=== PATIENT | female | born 1970 | race Caucasian/White ===

== ENCOUNTER 2018-08-27 15:35 | Emergency (ER) | payer OTHER ==
[~2018-08-27] VITALS: Ht 165.1 cm; Wt 99.8 kg
[~2018-08-27 15:35] MED LIST: ABILIFY PO; ABILIFY15 MG PO; ACCUNEB SO1.25 MG/1 INH; ALBUTROL INH; AMBIEN; AMBIEN 5 MG TABL5 M1; AMOXICILLIN 50500 MG PO; ATIVAN0.5 MG; AUGMENTIN 875-1 EACH PO; AZITHROMYCIN 2250 MG PO; BUPROPION PO; BUSPAR15 MG; BUTRANS1 EAC1 TD; CITALOPRAM PO; CLONAZEPAM 1 MG1 M1 PO; COUMADIN 5 MG TA5 M1 PO; COUMADIN7.5 MG PO; CYMBALTA; CYMBALTA60 MG PO; DOXYCYCLINE 10100 MG PO; EYE ITCH RELIEF5 ML OP; FIORICET 50-301 EACH PO; FISH OIL 1,001000 M2 PO; FLAGYL500 MG PO; GEODON80 MG PO; HYDROCODONE-AP1 EAC6 PO; HYDROXYZINE HCL25 M1 PO; IBUPROFEN 800800 MG PO; KLONOPIN0.5 MG PER TUBE; LEVAQUIN 500 M500 MG PO; LEXAPRO20 MG; LISINOPRIL-HCT1 EAC2 PO; LISINOPRIL-HCT1 EACH PO; LOVENOX SC; MACROBID 100 M100 M1 PO; MEDROLDOSEPACK PO; MOBIC7.5 MG PO; NORCO 5-325 TA1 EACH PO; OMEPRAZOLE40 MG PO; PHENAZOPYRIDIN200 M2 PO; PROAIR HFA8.5 GM INH; PROPRANOLOL 1010 M1; TRAMADOL 50 MG50 MG PO; TRAZODONE HCL100 MG; TRAZODONE PO; VEETIDS 500500 MG PO; VICODIN 5-5001 EACH PO; VOLTAREN GEL 1100 G1 TOP; XARELTO10 MG PO; XARELTO20 MG PO; ZESTORETIC 10-1 EACH; ZESTRIL5 MG PO
[2018-08-27] MEDS ORDERED: CLONAZEPAM 0.50.5 M1 PO (15:47)
[2018-08-27] MEDS ORDERED: NORCO 5-325 TA1 EACH PO (15:48)
[2018-08-27] MEDS ORDERED: LISINOPRIL20 MG PO (15:48)
[2018-08-27] MEDS ORDERED: AMOXICILLIN 50500 MG PO (16:25)
[2018-08-27] MEDS ORDERED: ACETAMINOPHEN-1 EAC1 PO (16:25)
[2018-08-27 16:36] VITALS: BP 135/75
== END 2018-08-27 16:37 | disposition home or self-care (01) ==
LOC: M.ERS 15:35
DX: K08.89 Other specified disorders of teeth and supporting structures (principal); J45.909 Unspecified asthma, uncomplicated; F32.9 Major depressive disorder, single episode, unspecified; F41.9 Anxiety disorder, unspecified; K58.9 Irritable bowel syndrome, unspecified; I10 Essential (primary) hypertension; Z98.890 Other specified postprocedural states; Z86.711 Personal history of pulmonary embolism; Z96.642 Presence of left artificial hip joint; Z88.2 Allergy status to sulfonamides

== ENCOUNTER 2019-05-12 20:35 | Inpatient (IN) | payer OTHER ==
[~2019-05-12] VITALS: Ht 165.1 cm; Wt 69.9 kg
--- NOTE | ~2019-05-12 | PROC ---
[address] [address] PROCEDURE REPORT Name: MORGAN AGARWAL Room: [address] IN M.R.#: [id number] Admission: 05/12/19 Attend Phys: Steph zavala [place] Discharge: 05/17/19 Date of : 68 Report #: [id number] THIS REPORT FOR: //name// For GI report, please see the Provation report in Perceptive 7 content. By: 0638Medical Records Staff AGAPITO /JON
--- NOTE | ~2019-05-12 | CON ---
[address] [address] CONSULTATION Name: MORGAN AGARWAL DENI Room: [address] IN M.R.#: [id number] Admission: 05/12/19 Attend Phys: Steph Rashid Discharge: Date of : 68 Report #: [id number] THIS REPORT FOR: //name// CC: Steph Palacios HISTORY OF PRESENT ILLNESS: This is a pleasant 48-year-old female with past medical history significant for obesity, status post gastric sleeve surgery in August of last year, who is presenting for evaluation of abdominal pain. The patient reports she has had abdominal pain since the surgery. It is located in the epigastric region and usually presents only after eating. The pain can present immediately after eating and sometimes can present up to 10-15 minutes after that. It is associated with nausea, no vomiting. The patient presented to the ER because yesterday she had pain after swallowing water. The patient reports she had an EGD done by Dr. Payne few months back and this was unremarkable. The patient also reports worsening reflux symptoms. She reports regurgitation of food when she bends forward after consuming food. PAST MEDICAL HISTORY: Significant for obesity. PAST SURGICAL HISTORY: Significant for total hip replacement, endometrial ablation, tubal ligation, tonsillectomy in the remote past. SOCIAL HISTORY: The patient denies smoking, alcohol or recreational drug use. FAMILY HISTORY: No family history of esophageal or gastric cancer. REVIEW OF SYSTEMS: Negative except for what was mentioned in the HPI. PHYSICAL EXAMINATION: VITAL SIGNS: Temperature 36.6, pulse rate 70, respirations 16, blood pressure 137/71, pulse ox 96% on room air. GENERAL: The patient is alert, awake, oriented x 3. HEENT: Pupils are equal, round, reactive to light and accommodation. Mucous membranes are moist. There is no congestion. LUNGS: Clear to auscultation bilaterally. CARDIOVASCULAR: Rate and rhythm regular, S1, S2 present. ABDOMEN: Soft. There is no distention, guarding or rigidity. EXTREMITIES: Warm and well perfused. SKIN: Warm and dry. LABORATORY DATA: Hemoglobin 11.9, hematocrit 34.8, WBC count 7.1, platelet count 232. Sodium 144, potassium 3.9, chloride 108, bicarbonate 32, BUN 7, creatinine 0.7, total bilirubin 0.3, AST 15, ALT 21, alkaline phosphatase 68. IMAGING: Abdomen and pelvis CT performed yesterday, fluid within the distal small bowel, proximal colon suggesting enteritis and diarrhea, [place] [address] CONSULTATION Name: MORGAN AGARWAL Room: [address] IN [facility].#: [id number] Admission: 05/12/19 Attend Phys: Steph Rashid Discharge: Date of : 68 Report #: [id number] changes from gastric sleeve surgery. ASSESSMENT AND PLAN: Pleasant 48-year-old female with severe epigastric abdominal pain. Post-gastric sleeve surgery. We initially plan on performing EGD today, but the procedure was deferred because of her low potassium. We will perform an EGD on her tomorrow and make further recommendations based on the results of the EGD. I would start her on Bentyl mg t.i.d. p.r.n. for her abdominal pain. Thank you for this consultation. By: 1349 0241Eric Vazquez MD /jeremy
[~2019-05-12 20:35] MED LIST changes: +ACETAMINOPHEN-1 EAC1 PO; +CLONAZEPAM 0.50.5 M1 PO; +LISINOPRIL20 MG PO; +NORCO 5-325 TA1 EAC2 PO; -TRAZODONE HCL100 MG; +TRAZODONE HCL100 MG PO
[2019-05-12 20:45] VITALS: BP 178/106
[2019-05-12] MEDS ORDERED: BUSPAR30 MG PO (20:49)
[2019-05-12] MEDS ORDERED: ZOFRAN 4 MG ORAL4 MG PO (20:50)
[2019-05-12 20:59] LABS: URINE BILIRUBIN NEGATIVE (Negative); URINE BLOOD NEGATIVE (Negative); URINE CLARITY CLEAR; URINE COLOR YELLOW; URINE GLUCOSE-RANDOM NEGATIVE (Negative); URINE KETONES NEGATIVE (Negative); URINE LEUKOCYTES-REFLEX NEGATIVE (Negative); URINE NITRITE-REFLEX NEGATIVE (Negative); URINE PROTEIN NEGATIVE (Negative); URINE UROBILINOGEN 0.2 E.U./dl (0.2-1.0)
[2019-05-12 21:11] LABS: ABSOLUTE BASOPHILS 0.1 thou/uL (0.0-0.2); ABSOLUTE EOSINOPHILS 0.2 thou/uL (0.0-0.7); ABSOLUTE LYMPHOCYTES 2.3 thou/uL (0.8-5.3); ABSOLUTE MONOCYTES 0.4 thou/uL (0.0-1.2); ABSOLUTE NEUTROPHILS 4.1 thou/uL (1.6-8.1); EOSINOPHILS 2.6 %; HEMATOCRIT 34.8 % (37.0-47.0); HEMOGLOBIN 11.9 gm/dL (12.0-15.0); LYMPHOCYTES 32.9 %; MCH 27.8 pg (26.0-34.0); MCHC 34.2 g/dL (28.0-37.0); MCV 81.4 fL (80.0-100.0); MONOCYTES 5.9 %; MPV 7.8 fl. (7.2-11.1); NUCLEATED RBCS 0 /100WBC; PLATELET COUNT* 232 thou/uL (150-400); POLYS 57.6 %; RBC 4.28 mil/uL (4.20-5.00); RDW-CV 13.5 % (10.5-14.5); WBC 7.1 thou/uL (4.0-11.0)
[2019-05-12 21:18] LABS: CALCIUM 8.6 mg/dL (8.5-10.1); POTASSIUM 2.5 mmol/L (3.5-5.1)
[2019-05-12 21:22] LABS: ALBUMIN 3.2 g/dL (3.4-5.0); TOTAL BILIRUBIN 0.3 mg/dL (<0.1-1.0); TOTAL PROTEIN 6.7 g/dL (6.4-8.2)
--- NOTE | 2019-05-12 22:00 | NUR ---
PATIENT LEFT FOR CT SCAN, WILL GIVE MEDICATION WHEN SHE RETURNS
[2019-05-12 23:50] VITALS: BP 126/86
[2019-05-13 03:58] VITALS: BP 112/59
[2019-05-13 07:55] VITALS: BP 94/51
[2019-05-13] MEDS ORDERED: XARELTO20 MG PO (08:54)
[2019-05-13] MEDS ORDERED: BUPROPION XL300 MG PO (08:56)
[2019-05-13 10:55] VITALS: BP 94/51
[2019-05-13 11:30] VITALS: BP 137/71
[2019-05-13 12:37] LABS: CALCIUM 8.2 mg/dL (8.5-10.1); CREATININE 0.9 mg/dL (0.6-1.3); MAGNESIUM 2.2 mg/dL (1.8-2.4)
[2019-05-13 12:38] LABS: POTASSIUM 3.9 mmol/L (3.5-5.1)
[2019-05-13 14:44] LABS: HEMATOCRIT 32.3 % (37.0-47.0); MCHC 34.1 g/dL (28.0-37.0); MCV 82.1 fL (80.0-100.0); MPV 8.1 fl. (7.2-11.1); RBC 3.93 mil/uL (4.20-5.00); RDW-CV 13.4 % (10.5-14.5); WBC 5.4 thou/uL (4.0-11.0)
--- NOTE | 2019-05-13 17:11 | NUR ---
VSS, NSR ON TELE, A&OX4, EPIGASTRIC PAIN, CLEAR LIQUID DIET, NPO AT MIDNIGHT EGD PLANNED FOR 05/14/19 AM. HOURLY ROUNDING PERFORMED, POSSESSIONS AND CALL LIGHT WITHIN REACH.
[2019-05-13 20:00] VITALS: BP 138/71
[2019-05-13 23:57] VITALS: BP 135/72
[2019-05-14 03:58] VITALS: BP 153/79
--- NOTE | 2019-05-14 04:32 | NUR ---
ASSUMED PATIENT CARE AT 1900. ASSESSMENT COMPLETED CHARTED. PATIENT IS NSR ON THE MONITOR. PATIENT REQUESTED THAT SOME OF HER HOME MEDICATIONS BE STARTED. PHYSICIAN NOTIFIED, NEW ORDERS RECEIVED, MEDS GIVEN, SEE EMAR FOR DETAILS. HOURLY ROUNDING IN PLACE FOR PATIENT SAFETY. CLWR.
[2019-05-14 05:17] LABS: HEMATOCRIT 36.4 % (37.0-47.0); HEMOGLOBIN 12.3 gm/dL (12.0-15.0); MCH 27.6 pg (26.0-34.0); MCHC 33.7 g/dL (28.0-37.0); MCV 82.1 fL (80.0-100.0); MPV 8.2 fl. (7.2-11.1); RBC 4.43 mil/uL (4.20-5.00); RDW-CV 13.7 % (10.5-14.5)
[2019-05-14 05:37] LABS: ALBUMIN 3.2 g/dL (3.4-5.0); MAGNESIUM 2.2 mg/dL (1.8-2.4); POTASSIUM 3.6 mmol/L (3.5-5.1); TOTAL BILIRUBIN 0.4 mg/dL (<0.1-1.0); TOTAL PROTEIN 6.2 g/dL (6.4-8.2)
[2019-05-14 08:00] VITALS: BP 153/78
[2019-05-14 12:53] VITALS: BP 180/87
[2019-05-14 16:31] LABS: HEMATOCRIT 38.6 % (37.0-47.0); MCH 28.2 pg (26.0-34.0); MCHC 33.7 g/dL (28.0-37.0); MCV 83.5 fL (80.0-100.0); MPV 8.7 fl. (7.2-11.1); RBC 4.63 mil/uL (4.20-5.00); RDW-CV 13.7 % (10.5-14.5); WBC 7.9 thou/uL (4.0-11.0)
--- NOTE | 2019-05-14 17:58 | NUR ---
EGD DONE TODAY. PROTONIX DRIP STARTED AT 8 MG/HR. PT TRYING FOR SIPS BUT C/O PAIN AFTER EATING, INTAKE LOW. NS CONTD AT 100 MLS/HR. UP AD LUÍS. GOOD UOP. MORPHINE ADMINISTERED TWICE THIS SHIFT FOR PAIN.
[2019-05-14 18:27] VITALS: BP 144/76
[2019-05-14 20:00] VITALS: BP 156/78
[2019-05-14 23:53] VITALS: BP 136/76
[2019-05-15 03:45] VITALS: BP 130/73
--- NOTE | 2019-05-15 05:25 | NUR ---
PT TOLERATING CLEAR LIQUID DIET WITHOUT DIFFICULTY. PT NOTED PAIN TO EPIGASTRIC AREA, TREATING WITH PRN PAIN MEDICATION WITH PARTIAL RELIEF. NO OTHER CONCERNS NOTED BY PT AT THIS TIME, CURRENTLY UP IN BED WITH CALL LIGHT WITHIN REACH.
[2019-05-15 08:00] VITALS: BP 147/99
--- NOTE | 2019-05-15 11:00 | NUR ---
MET WITH PT TO DISCUSS HOME SITUATION/DC PLANNING/ PT LIVES WITH FATHER. SHE IS INDEPENDENT AND ACTIVE. USES NO EQUIPMENT OR HH. PT PLANS TO RETURN HOME AT DC. DENIES NEEDS. WILL FOLLOW
[2019-05-15 11:37] VITALS: BP 130/69
[2019-05-15 12:38] LABS: HEMATOCRIT 36.7 % (37.0-47.0); HEMOGLOBIN 12.5 gm/dL (12.0-15.0); MCH 27.8 pg (26.0-34.0); MCV 81.8 fL (80.0-100.0); MPV 7.8 fl. (7.2-11.1); RBC 4.49 mil/uL (4.20-5.00); RDW-CV 13.5 % (10.5-14.5)
[2019-05-15 16:00] VITALS: BP 143/77
--- NOTE | 2019-05-15 18:37 | NUR ---
DIET ADVANCED TO FULL LIQUID. PT STATES SHE HURTS MORE POST EATING. PAIN RELIEVED BY MORPHINE. PROTONIX CONTD AT 8 MG/HR. UP AD LUÍS.
[2019-05-15 20:00] VITALS: BP 158/81
[2019-05-16 00:10] VITALS: BP 158/83
[2019-05-16 04:25] VITALS: BP 143/77
--- NOTE | 2019-05-16 04:57 | NUR ---
PT TOLERATING FULL LIQUID DIET. STILL HAS C/O PAIN TO EPIGASTIC AREA, TREATING WITH PRN PAIN MEDICATION WITH PARTIAL RELIEF NOTED. PT HAS NO OTHER CONCERNS AT THIS TIME, CURRENTLY ASLEEP IN BED WITH CALL LIGHT WITHIN REACH.
--- NOTE | 2019-05-16 07:10 | NUR ---
CHANGE OF SHIFT, BEDSIDE REPORT GIVEN PATIENT SEEN AT BEDSIDE, IN BED AND RESTING ASSUMED PATIENT CARE
[2019-05-16 08:00] VITALS: BP 152/73
[2019-05-16 12:34] VITALS: BP 145/79
--- NOTE | 2019-05-16 15:07 | PATH ---
[facility] [address] [place] [address] PATHOLOGY RPT PROCEDURE Name: STEFANOKIRSTIN CHEEMA Room: [address] IN .R.#: [id number] Admission: 05/12/19 Date of : 68 Discharge: Report #: [id number] Path Case #: [id number] [facility] Accession Number: [id number] . 01 Material submitted: . stomach - GASTRIC SLEEVE BIOPSY . 01 Clinical history: . None provided . 02 Diagnosis: Gastric biopsy - gastric sleeve: - Moderate nonspecific chronic gastritis, negative for Helicobacter pylori organisms and dysplasia. . (SAMREEN:cely; 05/16/2019) . . Special stain: H. pylori immuno QMS 05/16/2019 1129 Local . 02 Electronically signed: . Brian Huff MD, Pathologist NPI- [id number] . 01 Gross description: . The specimen is received in formalin, labeled "Kirstin Agarwal, gastric BX-gastric sleeve" and consists of 3 fragments of pink-toro tissue measuring between 0.3 x 0.1 cm and 0.3 x 0.3 cm which are entirely submitted in A1. (SDY; 05/15/2019) SYU/SYU 05/15/2019 1229 Local . 02 Microscopic: . . . 02 Pathologist provided ICD-10: K29.50 . 02 CPT . 808286, Z66630 Specimen Comment: A courtesy copy of this report has been sent to [phone] Specimen Comment: Report sent to Performed at: [address] [id number] MD Saad Jarvis MD Phone: [phone] Performed at: 02 [place] [address] PATHOLOGY RPT PROCEDURE Name: KIRSTIN AGARWAL Room: [address]#: [id number] Admission: 05/12/19 Date of : 68 Discharge: Report #: [id number] Path Case #: [id number] [address] [id number] MD Brian Huff MD Phone: [phone]
[2019-05-16 16:00] VITALS: BP 145/79
[2019-05-16 20:00] VITALS: BP 166/65
[2019-05-17] VITALS: BP 147/87
[2019-05-17 03:44] VITALS: BP 140/76
--- NOTE | 2019-05-17 05:18 | NUR ---
PT CONT WITH PAIN LEVEL REQUIRING PRN IV PAIN MEDICATION. SHE STATING THAT SHE IS HOPING TO GO HOME TOMORROW SHE HAS FAMILY THAT NEED HER. SHE STATED HER STOMACH IS STILL NOT TOLERATING FLUIDS WELL AND BECOMES UPSET AFTER DRINKING. ENCOURAGED PT DRINK MORE WATER IN PLACE OF SODA. PT IS CURRENTLY ASLEEP IN BED WITH CALL LIGHT WITHIN REACH.
[2019-05-17 07:58] VITALS: BP 154/90
[2019-05-17 12:21] VITALS: BP 147/75
[2019-05-17] MEDS ORDERED: PANTOPRAZOLE SO40 M1 PO (13:06)
[2019-05-17] MEDS ORDERED: BENTYL 20 MG TA20 M1 PO (13:09)
[2019-05-17 14:26] VITALS: BP 147/75
--- NOTE | 2019-05-17 16:29 | NUR ---
VSS, ASSUMED CARE IN THE AM, ASSESSMENT PERFORMED AND CHARTED, FALL PRECAUTIONS IN PLACE AND CALL LIGHT IN REACH, PT IS A&O4 AND UP AD LUÍS, ON RA AND IS TRACING SR ON THE MONITOR, PT STATES PAIN IN ABD, PT IS TO DISCHARGE HOME, IV AND TELE MONITOR TAKEN OFF, DISCHARGE PAPERS PROVITED ADN MEDS E-SENT TO PHARMACY, HOURLY ROUNDS COMPLETED AND PT WALKED OFF UNIT
== END 2019-05-17 15:40 | disposition home or self-care (01) | DRG 392 ==
LOC: M.ERS 20:35 → M.TBA-ER 22:39 → M.2W 22:39
PROVIDERS: Emergency Medicine; Internal Medicine; Internal Medicine Gastroenterology; ADMIT Family Medicine
PROC: 0W3P8ZZ Control Bleeding in Gastrointestinal Tract, Via Natural or Artificial Opening Endoscopic (ICD-10-PCS; principal; 2019-05-14)
PROC: 0DB68ZX Excision of Stomach, Via Natural or Artificial Opening Endoscopic, Diagnostic (ICD-10-PCS; principal; 2019-05-14)
DX: K52.9 Noninfective gastroenteritis and colitis, unspecified (principal); E44.1 Mild protein-calorie malnutrition; K29.50 Unspecified chronic gastritis without bleeding; J45.909 Unspecified asthma, uncomplicated; F41.9 Anxiety disorder, unspecified; F32.9 Major depressive disorder, single episode, unspecified; I10 Essential (primary) hypertension; Z96.642 Presence of left artificial hip joint; E87.6 Hypokalemia; E66.9 Obesity, unspecified; G89.29 Other chronic pain; R10.13 Epigastric pain; Z86.711 Personal history of pulmonary embolism; Z98.84 Bariatric surgery status; Z88.2 Allergy status to sulfonamides; Z68.25 Body mass index [BMI] 25.0-25.9, adult; Z90.3 Acquired absence of stomach [part of]; Z87.891 Personal history of nicotine dependence; Z82.49 Family history of ischemic heart disease and other diseases of the circulatory system

== ENCOUNTER 2019-05-27 10:40 | Emergency (ER) | payer OTHER ==
[~2019-05-27] VITALS: Ht 165.1 cm; Wt 68.0 kg
[~2019-05-27 10:40] MED LIST changes: +BENTYL 20 MG TA20 M1 PO; +BUPROPION XL300 MG PO; +BUSPAR30 MG PO; +PANTOPRAZOLE SO40 M1 PO; +ZOFRAN 4 MG ORAL4 MG PO
[2019-05-27 10:59] LABS: URINE BILIRUBIN 1+ (Negative); URINE BLOOD NEGATIVE (Negative); URINE CLARITY CLEAR; URINE COLOR YELLOW; URINE GLUCOSE-RANDOM NEGATIVE (Negative); URINE KETONES NEGATIVE (Negative); URINE LEUKOCYTES-REFLEX TRACE (Negative); URINE NITRITE-REFLEX NEGATIVE (Negative); URINE PROTEIN TRACE (Negative); URINE SPECIFIC GRAVITY 1.025 (1.005-1.030); URINE UROBILINOGEN 0.2 E.U./dl (0.2-1.0)
[2019-05-27 11:00] LABS: ICTOTEST (BILI CONFIRMATORY) Negative (Negative)
[2019-05-27 11:08] LABS: CASTS None Seen /LPF (None Seen); CRYSTALS None Seen /LPF (None Seen); MUCUS 4-6 Moderate strn/LPF (None Seen); SQUAMOUS 4-10 Moderate /LPF (0-3); URINE RBC 0-2 Rare /HPF (0-2); URINE WBC-REFLEX 0-5 Rare /HPF (0-5)
[2019-05-27 11:21] LABS: ABSOLUTE EOSINOPHILS 0.2 thou/uL (0.0-0.7); ABSOLUTE LYMPHOCYTES 1.6 thou/uL (0.8-5.3); ABSOLUTE MONOCYTES 0.4 thou/uL (0.0-1.2); ABSOLUTE NEUTROPHILS 4.1 thou/uL (1.6-8.1); BASOPHILS 0.7 %; EOSINOPHILS 3.3 %; HEMATOCRIT 37.3 % (37.0-47.0); HEMOGLOBIN 12.7 gm/dL (12.0-15.0); LYMPHOCYTES 25.7 %; MCH 27.7 pg (26.0-34.0); MCHC 33.9 g/dL (28.0-37.0); MCV 81.7 fL (80.0-100.0); MONOCYTES 6.1 %; MPV 7.9 fl. (7.2-11.1); NUCLEATED RBCS 0 /100WBC; PLATELET COUNT* 315 thou/uL (150-400); POLYS 64.2 %; RBC 4.56 mil/uL (4.20-5.00); RDW-CV 13.4 % (10.5-14.5); WBC 6.3 thou/uL (4.0-11.0)
[2019-05-27 11:33] LABS: CALCIUM 8.4 mg/dL (8.5-10.1); POTASSIUM 3.5 mmol/L (3.5-5.1)
[2019-05-27 11:37] LABS: ALBUMIN 3.2 g/dL (3.4-5.0); TOTAL BILIRUBIN 0.2 mg/dL (<0.1-1.0); TOTAL PROTEIN 6.9 g/dL (6.4-8.2)
[2019-05-27 12:37] VITALS: BP 138/67
--- NOTE | 2019-05-29 10:02 | EKG ---
[place] [address] ELECTROCARDIOGRAM REPORT Name: MORGAN AGARWAL [id number] Admission: 05/27/19 Attend Phys: Discharge: 05/27/19 Date of : 68 Report #: [id number] THIS REPORT FOR: //name// [facility] ED Test Date: 2019-05-27 Test Time: 12:28:14 Pat Name: MORGAN AGARWAL Department: Room: Gender: F Oil Well Engineer: GERARDO : 1970 Requested By: Nacho Franco Order Number: [id number] MD: Russell Tucker Measurements Intervals [place] Rate: 65 P: 68 NV: 181 QRS: 27 QRSD: 89 T: 8 QT: 421 QTc: 438 Interpretive Statements Sinus rhythm Borderline low voltage, extremity leads Compared to ECG 03/10/2016 20:03:10 Sinus tachycardia no longer present Electronically Signed On 05-29-2019 10:01:48 REAL ESTATE ASSESSOR by Russell Tucker [email or web address] <ELECTRONICALLY SIGNED> By: Russell Tucker MD, [facility] 05/29/19 1001 D: 01/1227 27 Russell Tucker MD, FACC /EPI
== END 2019-05-27 12:38 | disposition home or self-care (01) ==
LOC: M.ERS 10:40
PROVIDERS: Family Medicine
DX: M54.5 Low back pain (principal); K58.9 Irritable bowel syndrome, unspecified; F17.210 Nicotine dependence, cigarettes, uncomplicated; Z88.2 Allergy status to sulfonamides; Z98.51 Tubal ligation status; Z96.642 Presence of left artificial hip joint

== ENCOUNTER 2019-07-25 12:51 | Emergency (ER) | payer OTHER ==
[~2019-07-25] VITALS: Ht 165.1 cm; Wt 67.6 kg
[2019-07-25 13:33] LABS: INFLUENZA A ANTIGEN Negative (Negative); INFLUENZA B ANTIGEN Negative (Negative)
[2019-07-25 13:57] VITALS: BP 160/80
== END 2019-07-25 13:57 | disposition home or self-care (01) ==
LOC: M.ERS 12:51
PROVIDERS: Nurse Practitioner Family
DX: J06.9 Acute upper respiratory infection, unspecified (principal); K58.9 Irritable bowel syndrome, unspecified; F17.210 Nicotine dependence, cigarettes, uncomplicated; Z88.2 Allergy status to sulfonamides; Z98.51 Tubal ligation status; Z96.642 Presence of left artificial hip joint

== ENCOUNTER 2019-09-13 17:48 | Emergency (ER) | payer OTHER ==
[~2019-09-13] VITALS: Ht 165.1 cm; Wt 68.0 kg
[2019-09-13 18:03] LABS: URINE BILIRUBIN NEGATIVE (Negative); URINE BLOOD NEGATIVE (Negative); URINE CLARITY CLEAR; URINE COLOR YELLOW; URINE GLUCOSE-RANDOM NEGATIVE (Negative); URINE KETONES NEGATIVE (Negative); URINE LEUKOCYTES-REFLEX TRACE (Negative); URINE NITRITE-REFLEX NEGATIVE (Negative); URINE PROTEIN NEGATIVE (Negative); URINE UROBILINOGEN 0.2 E.U./dl (0.2-1.0)
[2019-09-13 18:15] LABS: CASTS None Seen /LPF (None Seen); MUCUS None Seen strn/LPF (None Seen); SQUAMOUS 4-10 Moderate /LPF (0-3)
[2019-09-13 18:15] LABS: ABSOLUTE BASOPHILS 0.1 thou/uL (0.0-0.2); ABSOLUTE EOSINOPHILS 0.5 thou/uL (0.0-0.7); ABSOLUTE LYMPHOCYTES 2.5 thou/uL (0.8-5.3); ABSOLUTE MONOCYTES 0.5 thou/uL (0.0-1.2); ABSOLUTE NEUTROPHILS 4.5 thou/uL (1.6-8.1); EOSINOPHILS 5.7 %; HEMATOCRIT 36.3 % (37.0-47.0); HEMOGLOBIN 12.4 gm/dL (12.0-15.0); LYMPHOCYTES 31.6 %; MCH 28.3 pg (26.0-34.0); MCHC 34.3 g/dL (28.0-37.0); MCV 82.5 fL (80.0-100.0); MONOCYTES 5.8 %; MPV 7.4 fl. (7.2-11.1); NUCLEATED RBCS 0 /100WBC; PLATELET COUNT* 278 thou/uL (150-400); POLYS 55.9 %; RDW-CV 13.5 % (10.5-14.5)
[2019-09-13 18:18] LABS: BACTERIA-REFLEX None Seen /HPF (None Seen); CRYSTALS None Seen /LPF (None Seen); URINE RBC None Seen /HPF (0-2); URINE WBC-REFLEX 0-5 Rare /HPF (0-5)
[2019-09-13 18:25] LABS: CALCIUM 8.3 mg/dL (8.5-10.1)
[2019-09-13 18:28] LABS: POTASSIUM 2.8 mmol/L (3.5-5.1)
[2019-09-13 18:29] LABS: ALBUMIN 3.3 g/dL (3.4-5.0); TOTAL BILIRUBIN 0.2 mg/dL (<0.1-1.0)
[2019-09-13] MEDS ORDERED: NORCO 5-325 TA1 EAC1 PO (19:35)
[2019-09-13] MEDS ORDERED: POTASSIUM20 PO (19:36)
[2019-09-13 19:54] VITALS: BP 140/78
--- NOTE | 2019-09-14 12:54 | EKG ---
[place] [address] ELECTROCARDIOGRAM REPORT Name: MORGAN AGARWAL Room: [facility]#: [id number] Admission: 09/13/19 Attend Phys: Discharge: 09/13/19 Date of : 68 Date of Service: 09/13/191824 Report #: [id number] THIS REPORT FOR: //name// [facility] ED Test Date: 2019-09-13 Test Time: 18:25:33 Pat Name: MORGAN AGARWAL Department: Room: Gender: Equipment Superintendent: : 1970 Requested By: Clarissa Capellan Order Number: [id number] MD: Virgilio Boo Measurements Intervals [place] Rate: 77 P: 71 ME: 171 QRS: 47 QRSD: 87 T: 30 QT: 429 QTc: 486 Interpretive Statements Sinus rhythm Compared to ECG 05/27/2019 12:28:14 No significant changes Electronically Signed On 09-14-2019 12:52:49 CDT by Virgilio Boo [email or web address] <ELECTRONICALLY SIGNED> By: Virgilio Boo MD, [facility] 09/14/19 1252 1825 182 Virgilio Boo MD, [facility] /EPI
== END 2019-09-13 19:54 | disposition home or self-care (01) ==
LOC: M.ERS 17:48
PROVIDERS: Nurse Practitioner Family
DX: E87.6 Hypokalemia (principal); R10.11 Right upper quadrant pain; K58.9 Irritable bowel syndrome, unspecified; F17.210 Nicotine dependence, cigarettes, uncomplicated; Z96.642 Presence of left artificial hip joint; Z98.51 Tubal ligation status; Z88.2 Allergy status to sulfonamides

== ENCOUNTER 2019-11-09 09:10 | Emergency (ER) | payer OTHER ==
[~2019-11-09] VITALS: Ht 165.1 cm; Wt 69.4 kg
[~2019-11-09 09:10] MED LIST changes: -BUPROPION XL300 MG PO; -CLONAZEPAM 0.50.5 M1 PO; +NORCO 5-325 TA1 EAC1 PO; +POTASSIUM20 PO; +WELLBUTRIN SR100 MG PO
[2019-11-09 10:45] VITALS: BP 174/90
== END 2019-11-09 10:46 | disposition home or self-care (01) ==
LOC: M.ERS 09:10
DX: H53.8 Other visual disturbances (principal); K58.9 Irritable bowel syndrome, unspecified; F17.210 Nicotine dependence, cigarettes, uncomplicated; Z98.51 Tubal ligation status; Z96.642 Presence of left artificial hip joint; Z86.718 Personal history of other venous thrombosis and embolism; Z88.2 Allergy status to sulfonamides

== ENCOUNTER 2019-11-23 19:54 | Emergency (ER) | payer OTHER ==
[~2019-11-23] VITALS: Ht 177.8 cm; Wt 81.2 kg
[2019-11-23 21:19] LABS: ABSOLUTE BASOPHILS 0.1 thou/uL (0.0-0.2); ABSOLUTE EOSINOPHILS 0.2 thou/uL (0.0-0.7); ABSOLUTE LYMPHOCYTES 2.3 thou/uL (0.8-5.3); ABSOLUTE MONOCYTES 0.5 thou/uL (0.0-1.2); ABSOLUTE NEUTROPHILS 4.5 thou/uL (1.6-8.1); BASOPHILS 1.1 %; EOSINOPHILS 2.1 %; HEMOGLOBIN 12.2 gm/dL (12.0-15.0); LYMPHOCYTES 30.7 %; MCH 28.2 pg (26.0-34.0); MCHC 34.8 g/dL (28.0-37.0); MCV 81.1 fL (80.0-100.0); MONOCYTES 7.1 %; MPV 7.8 fl. (7.2-11.1); NUCLEATED RBCS 0 /100WBC; PLATELET COUNT* 220 thou/uL (150-400); RBC 4.32 mil/uL (4.20-5.00); RDW-CV 13.5 % (10.5-14.5); WBC 7.6 thou/uL (4.0-11.0)
[2019-11-23 21:24] LABS: CALCIUM 8.2 mg/dL (8.5-10.1); CREATININE 1.2 mg/dL (0.6-1.3)
[2019-11-23 21:28] LABS: ALBUMIN 3.3 g/dL (3.4-5.0); MAGNESIUM 2.2 mg/dL (1.8-2.4); PHOSPHORUS* 3.8 mg/dL (2.5-4.9); TOTAL BILIRUBIN 0.3 mg/dL (<0.1-1.0); TOTAL PROTEIN 6.6 g/dL (6.4-8.2)
[2019-11-24 01:46] VITALS: BP 174/92
--- NOTE | 2019-11-24 13:08 | EKG ---
[place] [address] ELECTROCARDIOGRAM REPORT Name: STEFANOMORGAN DENI Room: [facility]#: [id number] Admission: 11/23/19 Attend Phys: Discharge: 11/24/19 Date of : 68 Date of Service: 11/23/192016 Report #: [id number] THIS REPORT FOR: //name// [facility] ED Test Date: 2019-11-23 Test Time: 20:17:18 Pat Name: MORGAN AGARWAL Department: Room: Gender: F Route Jumper: WERNER : 1970 Requested By: Ayaka Dasilva Order Number: [id number] Sabiha BARAHONA: Fish Giles Measurements Intervals [place] Rate: 71 P: -4 IA: 173 QRS: 35 QRSD: 96 T: 1 QT: 395 QTc: 430 Interpretive Statements Sinus rhythm Borderline T abnormalities, inferior leads Compared to ECG 09/13/2019 18:25:33 T-wave abnormality now present Electronically Signed On 11-24-2019 13:07:58 CDT by Fish Giles [email or web address] <ELECTRONICALLY SIGNED> By: Fish Giles MD, [facility] 11/24/19 1307 16 16 Fish Giles MD, [facility] /EPI
== END 2019-11-24 01:47 | disposition home or self-care (01) ==
LOC: M.ERS 19:54
PROVIDERS: Personal Emergency Response Attendant
DX: E87.6 Hypokalemia (principal); M79.10 Myalgia, unspecified site; K58.9 Irritable bowel syndrome, unspecified; F17.210 Nicotine dependence, cigarettes, uncomplicated; Z98.51 Tubal ligation status; Z86.711 Personal history of pulmonary embolism; Z96.642 Presence of left artificial hip joint; Z88.2 Allergy status to sulfonamides

== ENCOUNTER 2019-12-19 15:45 | Emergency (ER) | payer OTHER ==
[~2019-12-19] VITALS: Ht 165.1 cm; Wt 68.0 kg
[2019-12-19 16:31] LABS: ABSOLUTE BASOPHILS 0.1 thou/uL (0.0-0.2); ABSOLUTE EOSINOPHILS 0.1 thou/uL (0.0-0.7); ABSOLUTE LYMPHOCYTES 1.7 thou/uL (0.8-5.3); ABSOLUTE MONOCYTES 0.4 thou/uL (0.0-1.2); ABSOLUTE NEUTROPHILS 3.9 thou/uL (1.6-8.1); BASOPHILS 1.8 %; HEMATOCRIT 38.3 % (37.0-47.0); HEMOGLOBIN 13.2 gm/dL (12.0-15.0); LYMPHOCYTES 27.5 %; MCH 28.2 pg (26.0-34.0); MCHC 34.4 g/dL (28.0-37.0); MCV 81.8 fL (80.0-100.0); MONOCYTES 6.7 %; MPV 7.8 fl. (7.2-11.1); NUCLEATED RBCS 0 /100WBC; PLATELET COUNT* 271 thou/uL (150-400); RBC 4.68 mil/uL (4.20-5.00); WBC 6.3 thou/uL (4.0-11.0)
[2019-12-19 16:39] LABS: URINE BILIRUBIN NEGATIVE (Negative); URINE BLOOD NEGATIVE (Negative); URINE CLARITY CLEAR; URINE COLOR YELLOW; URINE GLUCOSE-RANDOM NEGATIVE (Negative); URINE KETONES NEGATIVE (Negative); URINE LEUKOCYTES-REFLEX 1+ (Negative); URINE NITRITE-REFLEX NEGATIVE (Negative); URINE PROTEIN NEGATIVE (Negative); URINE SPECIFIC GRAVITY 1.015 (1.005-1.030); URINE UROBILINOGEN 0.2 E.U./dl (0.2-1.0)
[2019-12-19 16:41] LABS: CALCIUM 8.2 mg/dL (8.5-10.1); CREATININE 1.1 mg/dL (0.6-1.3); POTASSIUM 3.6 mmol/L (3.5-5.1)
[2019-12-19 16:45] LABS: ALBUMIN 3.5 g/dL (3.4-5.0); TOTAL BILIRUBIN 0.4 mg/dL (<0.1-1.0); TOTAL PROTEIN 7.1 g/dL (6.4-8.2)
[2019-12-19 17:01] LABS: MUCUS None Seen strn/LPF (None Seen); SQUAMOUS >10 Many /LPF (0-3)
[2019-12-19 17:02] LABS: CASTS None Seen /LPF (None Seen); CRYSTALS None Seen /LPF (None Seen); URINE RBC None Seen /HPF (0-2); URINE WBC-REFLEX 0-5 Rare /HPF (0-5)
[2019-12-19 17:03] LABS: BACTERIA-REFLEX 1-9 Few /HPF (None Seen)
[2019-12-19] MEDS ORDERED: FLEXERIL PO (17:37)
[2019-12-19 17:55] VITALS: BP 136/87
--- NOTE | 2019-12-20 13:16 | EKG ---
[place] [address] ELECTROCARDIOGRAM REPORT Name: MORGAN AGARWAL Room: [facility]#: [id number] Admission: 12/19/19 Attend Phys: Discharge: 12/19/19 Date of : 68 Date of Service: 12/19/19 1714 Report #: [id number] THIS REPORT FOR: //name// [facility] ED Test Date: 2019-12-19 Test Time: 17:14:27 Pat Name: MORGAN AGARWAL Department: Room: Gender: Home Designer: J : 1970 Requested By: Clarissa Capellan Order Number: [id number] MD: Fish Giles Measurements Intervals [place] Rate: 61 P: 66 AR: 172 QRS: 44 QRSD: 90 T: 32 QT: 409 QTc: 412 Interpretive Statements Sinus rhythm Compared to ECG 11/23/2019 20:17:18 T-wave abnormality no longer present Electronically Signed On 12-20-2019 13:16:01 CDT by Fish Giles [email or web address] <ELECTRONICALLY SIGNED> By: Fish Giles MD, [facility] 12/20/19 1316 1714 1714 Fish Giles MD, [facility] /EPI
== END 2019-12-19 17:56 | disposition home or self-care (01) ==
LOC: M.ERS 15:45
PROVIDERS: Nurse Practitioner Family
DX: K13.70 Unspecified lesions of oral mucosa (principal); R53.1 Weakness; R25.2 Cramp and spasm; K58.9 Irritable bowel syndrome, unspecified; F17.210 Nicotine dependence, cigarettes, uncomplicated; Z20.828 Contact with and (suspected) exposure to other viral communicable diseases; Z96.642 Presence of left artificial hip joint; Z86.711 Personal history of pulmonary embolism; Z98.51 Tubal ligation status; Z88.2 Allergy status to sulfonamides

== ENCOUNTER 2020-02-04 02:34 | Emergency (ER) | payer OTHER ==
[~2020-02-04] VITALS: Ht 165.1 cm; Wt 67.6 kg
[~2020-02-04 02:34] MED LIST changes: +FLEXERIL PO
[2020-02-04] MEDS ORDERED: LORCET 5-325 M1 EACH PO (02:41)
[2020-02-04 04:06] VITALS: BP 160/92
--- NOTE | 2020-02-05 13:42 | EKG ---
[place] [address] ELECTROCARDIOGRAM REPORT Name: MORGAN AGARWAL Room: [facility]#: [id number] Admission: 02/04/20 Attend Phys: Discharge: 02/04/20 Date of : 68 Date of Service: 02/04/20 0243 Report #: [id number] THIS REPORT FOR: //name// [facility] ED Test Date: 2020-02-04 Test Time: 02:43:54 Pat Name: MORGAN AGARWAL Department: Room: Gender: F Occ Therapist: [place] : 1970 Requested By: Celeste Astorga Order Number: [id number] Sabiha MD: Russell Tucker Measurements Intervals [place] Rate: 78 P: 20 LA: 154 QRS: 40 QRSD: 96 T: 28 QT: 388 QTc: 442 Interpretive Statements Sinus rhythm Compared to ECG 12/19/2019 17:14:27 No significant changes Electronically Signed On 02-05-2020 13:42:28 CDT by Russell Tucker [email or web address] <ELECTRONICALLY SIGNED> By: Russell Tucker MD, [facility] 02/05/20 1342 0243 0243 Russell Tucker MD, [facility] /EPI
== END 2020-02-04 04:07 | disposition home or self-care (01) ==
LOC: M.ERS 02:34
DX: S63.591A Other specified sprain of right wrist, initial encounter (principal); K06.8 Other specified disorders of gingiva and edentulous alveolar ridge; G89.29 Other chronic pain; K58.9 Irritable bowel syndrome, unspecified; F17.210 Nicotine dependence, cigarettes, uncomplicated; Z96.642 Presence of left artificial hip joint; Z86.711 Personal history of pulmonary embolism; Z98.51 Tubal ligation status; Z88.2 Allergy status to sulfonamides; W10.8XXA Fall (on) (from) other stairs and steps, initial encounter; Y93.89 Activity, other specified; Y92.89 Other specified places as the place of occurrence of the external cause; Y99.8 Other external cause status

== ENCOUNTER 2020-03-10 15:52 | Emergency (ER) | payer OTHER ==
[~2020-03-10] VITALS: Ht 165.1 cm; Wt 68.0 kg
[~2020-03-10 15:52] MED LIST changes: +LORCET 5-325 M1 EACH PO
[2020-03-10] MEDS ORDERED: EFFER-K 20 MEQ20 ME1 PO (15:58)
[2020-03-10 18:02] VITALS: BP 140/95
--- NOTE | 2020-03-11 16:36 | EKG ---
[place] [address] ELECTROCARDIOGRAM REPORT Name: MORGAN AGARWAL Room: [facility]#: [id number] Admission: 03/10/20 Attend Phys: Discharge: 03/10/20 Date of : 68 Date of Service: 03/10/20 174 Report #: [id number] THIS REPORT FOR: //name// [facility] ED Test Date: 2020-03-10 Test Time: 17:42:07 Pat Name: MORGAN AGARWAL Department: Room: Gender: F Cnc Machine Operator: [facility] : 1970 Requested By: Nacho Franco Order Number: [id number] Sabiha MD: Fish Giles Measurements Intervals [place] Rate: 70 P: 69 DC: 175 QRS: 44 QRSD: 94 T: 24 QT: 428 QTc: 462 Interpretive Statements Sinus rhythm Compared to ECG 02/04/2020 02:43:54 No significant changes Electronically Signed On 03-11-2020 16:36:31 NEUROLOGY HOSPITALIST by Fish Giles [email or web address] <ELECTRONICALLY SIGNED> By: Fish Giles MD, [facility] 03/11/20 1636 174 174 Fish Giles MD, [facility] /EPI
== END 2020-03-10 18:02 | disposition home or self-care (01) ==
LOC: M.ERS 15:52
DX: R42 Dizziness and giddiness (principal); I10 Essential (primary) hypertension; G89.29 Other chronic pain; K58.9 Irritable bowel syndrome, unspecified; Z88.2 Allergy status to sulfonamides; Z88.8 Allergy status to other drugs, medicaments and biological substances; Z98.51 Tubal ligation status; Z96.642 Presence of left artificial hip joint

== ENCOUNTER 2020-04-06 09:47 | Emergency (ER) | payer OTHER ==
[~2020-04-06] VITALS: Ht 165.1 cm; Wt 68.0 kg
[~2020-04-06 09:47] MED LIST changes: +EFFER-K 20 MEQ20 ME1 PO
[2020-04-06] MEDS ORDERED: ZOFRAN ODT4 MG DISSOLVE (10:34)
[2020-04-06 10:40] VITALS: BP 154/86
== END 2020-04-06 10:43 | disposition home or self-care (01) ==
LOC: M.ERS 09:47
DX: U07.1 COVID-19 (principal); I10 Essential (primary) hypertension; Z88.2 Allergy status to sulfonamides; Z79.899 Other long term (current) drug therapy; F17.210 Nicotine dependence, cigarettes, uncomplicated; Z88.8 Allergy status to other drugs, medicaments and biological substances; Z98.51 Tubal ligation status

== ENCOUNTER 2020-04-07 15:52 | Emergency (ER) | payer OTHER ==
[~2020-04-07] VITALS: Ht 165.1 cm; Wt 67.6 kg
[~2020-04-07 15:52] MED LIST changes: +ZOFRAN ODT4 MG DISSOLVE
[2020-04-07 16:49] LABS: ABSOLUTE EOSINOPHILS 0.3 thou/uL (0.0-0.7); ABSOLUTE LYMPHOCYTES 1.8 thou/uL (0.8-5.3); ABSOLUTE MONOCYTES 0.4 thou/uL (0.0-1.2); ABSOLUTE NEUTROPHILS 2.9 thou/uL (1.6-8.1); BASOPHILS 0.8 %; EOSINOPHILS 5.5 %; HEMATOCRIT 36.9 % (37.0-47.0); HEMOGLOBIN 12.4 gm/dL (12.0-15.0); LYMPHOCYTES 33.2 %; MCH 27.8 pg (26.0-34.0); MCHC 33.6 g/dL (28.0-37.0); MCV 82.8 fL (80.0-100.0); MONOCYTES 6.7 %; MPV 7.4 fl. (7.2-11.1); NUCLEATED RBCS 0 /100WBC; PLATELET COUNT* 261 thou/uL (150-400); POLYS 53.8 %; RBC 4.45 mil/uL (4.20-5.00); RDW-CV 13.1 % (10.5-14.5); WBC 5.5 thou/uL (4.0-11.0)
[2020-04-07 17:08] LABS: CALCIUM 8.3 mg/dL (8.5-10.1); POTASSIUM 3.7 mmol/L (3.5-5.1)
[2020-04-07 17:13] LABS: ALBUMIN 3.2 g/dL (3.4-5.0); TOTAL BILIRUBIN 0.2 mg/dL (<0.1-1.0); TOTAL PROTEIN 7.1 g/dL (6.4-8.2)
[2020-04-07 20:05] VITALS: BP 146/90
--- NOTE | 2020-04-08 14:57 | EKG ---
[place] [address] ELECTROCARDIOGRAM REPORT Name: MORGAN AGARWAL Room: [facility]#: [id number] Admission: 04/07/20 Attend Phys: Discharge: 04/07/20 Date of : 68 Date of Service: 04/07/20 1626 Report #: [id number] THIS REPORT FOR: //name// [facility] ED Test Date: 2020-04-07 Test Time: 16:26:15 Pat Name: MORGAN AGARWAL Department: Room: Gender: F Bale Breaker Operator: MARIVEL : 1970 Requested By: Natalie Carbone Order Number: [id number] MD: Russell Tucker Measurements Intervals [place] Rate: 67 P: 44 SC: 168 QRS: 58 QRSD: 89 T: 37 QT: 400 QTc: 423 Interpretive Statements Sinus rhythm Compared to ECG 03/10/2020 17:42:07 No significant changes Electronically Signed On 04-08-2020 14:57:25 BARKING MACHINE FEEDER by Russell Tucker [email or web address] <ELECTRONICALLY SIGNED> By: Russell Tucker MD, [facility] 04/08/20 1457 1626 1626 Russell Tucker MD, [facility] /EPI
== END 2020-04-07 20:05 | disposition home or self-care (01) ==
LOC: M.ERS 15:52
PROVIDERS: Nurse Practitioner Family
DX: U07.1 COVID-19 (principal); R07.89 Other chest pain; M79.7 Fibromyalgia; I10 Essential (primary) hypertension; K58.9 Irritable bowel syndrome, unspecified; G89.29 Other chronic pain; F17.210 Nicotine dependence, cigarettes, uncomplicated; Z98.51 Tubal ligation status; Z96.642 Presence of left artificial hip joint; Z86.711 Personal history of pulmonary embolism; Z88.2 Allergy status to sulfonamides

== ENCOUNTER 2020-07-21 21:41 | Emergency (ER) | payer OTHER ==
[~2020-07-21] VITALS: Ht 165.1 cm; Wt 67.6 kg
[2020-07-21] MEDS ORDERED: PERCOCET 5-3251 EACH PO (21:56)
[2020-07-21] MEDS ORDERED: FLEXERIL PO (21:56)
[2020-07-21 23:37] LABS: URINE BILIRUBIN NEGATIVE (Negative); URINE BLOOD NEGATIVE (Negative); URINE CLARITY CLEAR; URINE COLOR YELLOW; URINE GLUCOSE-RANDOM NEGATIVE (Negative); URINE KETONES NEGATIVE (Negative); URINE LEUKOCYTES-REFLEX 1+ (Negative); URINE NITRITE-REFLEX NEGATIVE (Negative); URINE PROTEIN NEGATIVE (Negative); URINE SPECIFIC GRAVITY 1.015 (1.005-1.030); URINE UROBILINOGEN 0.2 E.U./dl (0.2-1.0)
[2020-07-21 23:45] LABS: ABSOLUTE BASOPHILS 0.1 thou/uL (0.0-0.2); ABSOLUTE EOSINOPHILS 0.2 thou/uL (0.0-0.7); ABSOLUTE LYMPHOCYTES 2.6 thou/uL (0.8-5.3); ABSOLUTE MONOCYTES 0.4 thou/uL (0.0-1.2); ABSOLUTE NEUTROPHILS 3.2 thou/uL (1.6-8.1); BASOPHILS 0.9 %; EOSINOPHILS 3.2 %; HEMATOCRIT 38.9 % (37.0-47.0); HEMOGLOBIN 12.8 gm/dL (12.0-15.0); LYMPHOCYTES 40.5 %; MCHC 32.9 g/dL (28.0-37.0); MCV 82.1 fL (80.0-100.0); MPV 7.7 fl. (7.2-11.1); NUCLEATED RBCS 0 /100WBC; PLATELET COUNT* 266 thou/uL (150-400); POLYS 49.4 %; RBC 4.74 mil/uL (4.20-5.00); RDW-CV 13.2 % (10.5-14.5); WBC 6.4 thou/uL (4.0-11.0)
[2020-07-21 23:48] LABS: BACTERIA-REFLEX 1-9 Few /HPF (None Seen); MUCUS 0-3 Light strn/LPF (None Seen); SQUAMOUS 0-3 Few /LPF (0-3); URINE RBC None Seen /HPF (0-2); URINE WBC-REFLEX 0-5 Rare /HPF (0-5)
[2020-07-21 23:48] LABS: CALCIUM 9.3 mg/dL (8.5-10.1); CREATININE 1.1 mg/dL (0.6-1.3); POTASSIUM 3.5 mmol/L (3.5-5.1)
[2020-07-21 23:49] LABS: CASTS None Seen /LPF (None Seen); CRYSTALS None Seen /LPF (None Seen)
[2020-07-21 23:52] LABS: ALBUMIN 3.4 g/dL (3.4-5.0); TOTAL BILIRUBIN 0.3 mg/dL (<0.1-1.0); TOTAL PROTEIN 7.2 g/dL (6.4-8.2)
[2020-07-22] MEDS ORDERED: FLAGYL500 M1 PO (04:57)
[2020-07-22] MEDS ORDERED: CARAFATE 1 GM TA1 GM PO (04:57)
[2020-07-22] MEDS ORDERED: HYDROCODON-ACE1 EAC7 PO (04:57)
[2020-07-22] MEDS ORDERED: ZOFRAN ODT4 MG PO (04:57)
[2020-07-22 05:00] VITALS: BP 148/72
== END 2020-07-22 05:00 | disposition home or self-care (01) ==
LOC: M.ERS 21:41
PROVIDERS: Personal Emergency Response Attendant
DX: K52.9 Noninfective gastroenteritis and colitis, unspecified (principal); K58.9 Irritable bowel syndrome, unspecified; I10 Essential (primary) hypertension; M79.7 Fibromyalgia; G89.29 Other chronic pain; F17.210 Nicotine dependence, cigarettes, uncomplicated; Z88.2 Allergy status to sulfonamides; Z88.8 Allergy status to other drugs, medicaments and biological substances; Z98.51 Tubal ligation status; Z96.642 Presence of left artificial hip joint; Z86.711 Personal history of pulmonary embolism

== ENCOUNTER 2020-12-07 17:39 | Emergency (ER) | payer OTHER ==
[~2020-12-07] VITALS: Ht 165.1 cm; Wt 65.8 kg
[~2020-12-07 17:39] MED LIST changes: +CARAFATE 1 GM TA1 GM PO; +FLAGYL500 M1 PO; +HYDROCODON-ACE1 EAC7 PO; +PERCOCET 5-3251 EACH PO; +ZOFRAN ODT4 MG PO
[2020-12-07] MEDS ORDERED: ZOLOFT100 MG PO (18:01)
[2020-12-07 18:43] LABS: ABSOLUTE BASOPHILS 0.1 thou/uL (0.0-0.2); ABSOLUTE EOSINOPHILS 0.3 thou/uL (0.0-0.7); ABSOLUTE LYMPHOCYTES 1.8 thou/uL (0.8-5.3); ABSOLUTE MONOCYTES 0.5 thou/uL (0.0-1.2); ABSOLUTE NEUTROPHILS 3.9 thou/uL (1.6-8.1); BASOPHILS 1.4 %; EOSINOPHILS 4.3 %; HEMATOCRIT 36.1 % (37.0-47.0); LYMPHOCYTES 27.5 %; MCH 26.8 pg (26.0-34.0); MCHC 33.1 g/dL (28.0-37.0); MPV 7.5 fl. (7.2-11.1); NUCLEATED RBCS 0 /100WBC; PLATELET COUNT* 294 thou/uL (150-400); POLYS 58.8 %; RBC 4.46 mil/uL (4.20-5.00); RDW-CV 13.3 % (10.5-14.5); WBC 6.6 thou/uL (4.0-11.0)
[2020-12-07 18:52] LABS: CREATININE 1.2 mg/dL (0.6-1.3); POTASSIUM 3.3 mmol/L (3.5-5.1)
[2020-12-07 18:57] LABS: ALBUMIN 3.6 g/dL (3.4-5.0); TOTAL BILIRUBIN 0.3 mg/dL (<0.1-1.0); TOTAL PROTEIN 6.9 g/dL (6.4-8.2)
[2020-12-07 19:05] LABS: URINE BILIRUBIN NEGATIVE (Negative); URINE BLOOD NEGATIVE (Negative); URINE CLARITY CLEAR; URINE COLOR YELLOW; URINE GLUCOSE-RANDOM NEGATIVE (Negative); URINE KETONES NEGATIVE (Negative); URINE LEUKOCYTES-REFLEX NEGATIVE (Negative); URINE NITRITE-REFLEX NEGATIVE (Negative); URINE PROTEIN NEGATIVE (Negative); URINE UROBILINOGEN 0.2 E.U./dl (0.2-1.0)
[2020-12-07] MEDS ORDERED: ONDANSETRON ODT4 MG PO (21:10)
[2020-12-07 21:20] VITALS: BP 122/61
== END 2020-12-07 21:20 | disposition home or self-care (01) ==
LOC: M.ERS 17:39
PROVIDERS: Physician Assistant
DX: R10.11 Right upper quadrant pain (principal); Z20.822 Contact with and (suspected) exposure to COVID-19; F17.210 Nicotine dependence, cigarettes, uncomplicated; I10 Essential (primary) hypertension; Z79.899 Other long term (current) drug therapy; Z98.51 Tubal ligation status; Z88.2 Allergy status to sulfonamides; Z88.8 Allergy status to other drugs, medicaments and biological substances

== ENCOUNTER 2021-02-04 19:01 | Emergency (ER) | payer OTHER ==
[~2021-02-04] VITALS: Ht 165.1 cm; Wt 65.8 kg
[~2021-02-04 19:01] MED LIST changes: +ONDANSETRON ODT4 MG PO; +ZOLOFT100 MG PO
[2021-02-04 19:34] LABS: ABSOLUTE BASOPHILS 0.1 thou/uL (0.0-0.2); ABSOLUTE EOSINOPHILS 0.3 thou/uL (0.0-0.7); ABSOLUTE LYMPHOCYTES 2.1 thou/uL (0.8-5.3); ABSOLUTE MONOCYTES 0.4 thou/uL (0.0-1.2); ABSOLUTE NEUTROPHILS 3.5 thou/uL (1.6-8.1); BASOPHILS 0.9 %; EOSINOPHILS 4.9 %; HEMATOCRIT 32.9 % (37.0-47.0); HEMOGLOBIN 11.1 gm/dL (12.0-15.0); LYMPHOCYTES 32.6 %; MCH 27.5 pg (26.0-34.0); MCHC 33.8 g/dL (28.0-37.0); MCV 81.3 fL (80.0-100.0); MONOCYTES 6.9 %; MPV 7.8 fl. (7.2-11.1); NUCLEATED RBCS 0 /100WBC; PLATELET COUNT* 240 thou/uL (150-400); POLYS 54.7 %; RBC 4.05 mil/uL (4.20-5.00); RDW-CV 13.7 % (10.5-14.5); WBC 6.3 thou/uL (4.0-11.0)
[2021-02-04 19:37] LABS: CALCIUM 7.9 mg/dL (8.5-10.1); CREATININE 1.2 mg/dL (0.6-1.3); POTASSIUM 3.2 mmol/L (3.5-5.1)
[2021-02-04 19:41] LABS: ALBUMIN 3.2 g/dL (3.4-5.0); MAGNESIUM 2.1 mg/dL (1.8-2.4); TOTAL BILIRUBIN 0.2 mg/dL (<0.1-1.0); TOTAL PROTEIN 6.4 g/dL (6.4-8.2)
[2021-02-04 20:44] VITALS: BP 148/68
== END 2021-02-04 20:44 | disposition home or self-care (01) ==
LOC: M.ERS 19:01
PROVIDERS: Nurse Practitioner Family
DX: E87.6 Hypokalemia (principal); I10 Essential (primary) hypertension; M79.7 Fibromyalgia; F17.210 Nicotine dependence, cigarettes, uncomplicated; Z98.51 Tubal ligation status; Z96.642 Presence of left artificial hip joint; Z98.84 Bariatric surgery status; Z86.711 Personal history of pulmonary embolism; Z79.899 Other long term (current) drug therapy; Z88.2 Allergy status to sulfonamides; Z88.8 Allergy status to other drugs, medicaments and biological substances

== ENCOUNTER 2021-04-17 11:28 | Emergency (ER) | payer OTHER ==
[~2021-04-17] VITALS: Ht 165.1 cm; Wt 68.0 kg
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
--- NOTE | 2021-04-17 11:59 | EKG ---
[place] [address] ELECTROCARDIOGRAM REPORT Name: JANELLEDIPAKMORGAN DENI Room: [facility].#: [id number] Admission: Attend Phys: Discharge: Date of : 68 Date of Service: 04/17/21 1130 Report #: [id number] THIS REPORT FOR: //name// [facility] ED Test Date: 2021-04-17 Test Time: 11:30:09 Pat Name: MORGAN AGRAWAL Department: Room: Gender: F Painter And Body Work: : 1970 Requested By: Aubrey Jorge Order Number: [id number] MD: Fish Giles Measurements Intervals [place] Rate: 58 P: [place]: QRS: 33 QRSD: 111 T: 28 QT: 506 QTc: 498 Interpretive Statements Sinus rhythm Anteroseptal infarct, age indeterminate possible Baseline wander in lead(s) V2 Compared to ECG 04/07/2020 16:26:15 QS complexes are noted in V1 V2 Electronically Signed On 04-17-2021 11:58:45 KNOWLEDGE MANAGER by Fish Giles [email or web address] <ELECTRONICALLY SIGNED> By: Fish Giles MD, [facility] 04/17/21 1158 1130 1130 Fish Giles MD, [facility] /EPI
[2021-04-17 12:06] LABS: ABSOLUTE EOSINOPHILS 0.2 thou/uL (0.0-0.7); ABSOLUTE LYMPHOCYTES 1.3 thou/uL (0.8-5.3); ABSOLUTE MONOCYTES 0.3 thou/uL (0.0-1.2); ABSOLUTE NEUTROPHILS 3.4 thou/uL (1.6-8.1); BASOPHILS 0.7 %; EOSINOPHILS 3.7 %; HEMATOCRIT 41.7 % (37.0-47.0); HEMOGLOBIN 13.4 gm/dL (12.0-15.0); LYMPHOCYTES 24.7 %; MCH 27.3 pg (26.0-34.0); MCHC 32.2 g/dL (28.0-37.0); MCV 84.8 fL (80.0-100.0); MONOCYTES 5.4 %; NUCLEATED RBCS 0 /100WBC; PLATELET COUNT* 70 thou/uL (150-400); POLYS 65.5 %; RBC 4.92 mil/uL (4.20-5.00); WBC 5.2 thou/uL (4.0-11.0)
[2021-04-17 12:35] LABS: URINE BILIRUBIN NEGATIVE (Negative); URINE BLOOD NEGATIVE (Negative); URINE CLARITY CLEAR; URINE COLOR YELLOW; URINE GLUCOSE-RANDOM NEGATIVE (Negative); URINE KETONES NEGATIVE (Negative); URINE LEUKOCYTES-REFLEX TRACE (Negative); URINE NITRITE-REFLEX NEGATIVE (Negative); URINE PROTEIN NEGATIVE (Negative); URINE SPECIFIC GRAVITY 1.015 (1.005-1.030); URINE UROBILINOGEN 0.2 E.U./dl (0.2-1.0)
[2021-04-17 12:46] LABS: HYALINE CASTS 0-3 Few /LPF (None Seen); SQUAMOUS 4-10 Moderate /LPF (0-3); URINE WBC-REFLEX 0-5 Rare /HPF (0-5)
[2021-04-17 12:47] LABS: BACTERIA-REFLEX None Seen /HPF (None Seen); CRYSTALS None Seen /LPF (None Seen); URINE RBC None Seen /HPF (0-2)
[2021-04-17 12:50] LABS: POTASSIUM 3.3 mmol/L (3.5-5.1); TOTAL BILIRUBIN 0.2 mg/dL (<0.1-1.0); TOTAL PROTEIN 5.3 g/dL (6.4-8.2)
[2021-04-17 13:00] LABS: ALBUMIN 2.5 g/dL (3.4-5.0); CALCIUM 8.1 mg/dL (8.5-10.1)
[2021-04-17] MEDS ORDERED: NAPROSYN500 MG PO (14:31)
[2021-04-17] MEDS ORDERED: MEDROLDOSEPACK PO (14:31)
[2021-04-17] MEDS ORDERED: APAP W/CODEINE1 TA2 PO (16:13)
[2021-04-17 16:18] VITALS: BP 146/65
== END 2021-04-17 16:20 | disposition home or self-care (01) ==
LOC: M.ERS 11:28
PROVIDERS: Physician Assistant
DX: I95.1 Orthostatic hypotension (principal); I10 Essential (primary) hypertension; F17.210 Nicotine dependence, cigarettes, uncomplicated; Z79.899 Other long term (current) drug therapy; Z98.51 Tubal ligation status; Z88.2 Allergy status to sulfonamides; Z88.8 Allergy status to other drugs, medicaments and biological substances

== ENCOUNTER 2021-04-27 12:25 | Emergency (ER) | payer OTHER ==
[~2021-04-27] VITALS: Ht 165.1 cm; Wt 68.0 kg
[~2021-04-27 12:25] MED LIST changes: +APAP W/CODEINE1 TA2 PO; +NAPROSYN500 MG PO
[2021-04-27] MEDS ORDERED: PERCOCET 5-3251 EACH PO (12:40)
[2021-04-27] MEDS ORDERED: SOMA350 MG PO (12:40)
[2021-04-27] MEDS ORDERED: CLONAZEPAM 0.50.5 M1 PO (12:40)
[2021-04-27 14:24] LABS: ABSOLUTE BASOPHILS 0.1 thou/uL (0.0-0.2); ABSOLUTE EOSINOPHILS 0.1 thou/uL (0.0-0.7); ABSOLUTE LYMPHOCYTES 1.4 thou/uL (0.8-5.3); ABSOLUTE MONOCYTES 0.3 thou/uL (0.0-1.2); ABSOLUTE NEUTROPHILS 3.5 thou/uL (1.6-8.1); BASOPHILS 1.1 %; EOSINOPHILS 1.4 %; HEMATOCRIT 34.7 % (37.0-47.0); HEMOGLOBIN 11.5 gm/dL (12.0-15.0); LYMPHOCYTES 26.6 %; MCH 27.1 pg (26.0-34.0); MCHC 33.2 g/dL (28.0-37.0); MCV 81.8 fL (80.0-100.0); MONOCYTES 5.5 %; MPV 7.6 fl. (7.2-11.1); NUCLEATED RBCS 0 /100WBC; PLATELET COUNT* 376 thou/uL (150-400); POLYS 65.4 %; RBC 4.25 mil/uL (4.20-5.00); RDW-CV 13.6 % (10.5-14.5); WBC 5.4 thou/uL (4.0-11.0)
[2021-04-27 14:34] LABS: CALCIUM 8.6 mg/dL (8.5-10.1); CREATININE 1.1 mg/dL (0.6-1.3); POTASSIUM 3.8 mmol/L (3.5-5.1)
[2021-04-27 14:41] LABS: ALBUMIN 3.4 g/dL (3.4-5.0); TOTAL BILIRUBIN 0.2 mg/dL (<0.1-1.0)
[2021-04-27 15:35] VITALS: BP 139/79
--- NOTE | 2021-04-28 12:28 | EKG ---
[place] [address] ELECTROCARDIOGRAM REPORT Name: MORGAN AGARWAL Room: [facility]#: [id number] Admission: 04/27/21 Attend Phys: Discharge: 04/27/21 Date of : [birth year] Date of Service: 04/27/21 1234 Report #: [id number] THIS REPORT FOR: //name// [facility] ED Test Date: 2021-04-27 Test Time: 12:34:17 Pat Name: MORGAN AGARWAL Department: Room: Gender: F Machine Ii Coremaker: TDS : 1970 Requested By: Aubrey Jorge Order Number: [id number] MD: Fish Giles Measurements Intervals [place] Rate: 88 P: -82 IA: 151 QRS: -42 QRSD: 87 T: 48 QT: 371 QTc: 449 Interpretive Statements Sinus or ectopic atrial rhythm Inferior infarct, old Compared to ECG 04/17/2021 11:30:09 Ectopic atrial rhythm now present Myocardial infarct finding still present Electronically Signed On 04-28-2021 12:28:22 BOATBUILDER APPRENTICE WOOD by Fish Giles [email or web address] <ELECTRONICALLY SIGNED> By: Fish Giels MD, [facility] 04/28/21 1228 1234 1234 Fish Giles MD, [facility] /EPI
== END 2021-04-27 15:36 | disposition home or self-care (01) ==
LOC: M.ERS 12:25
PROVIDERS: Physician Assistant
DX: R07.89 Other chest pain (principal); Z20.822 Contact with and (suspected) exposure to COVID-19; I10 Essential (primary) hypertension; F17.210 Nicotine dependence, cigarettes, uncomplicated; Z79.899 Other long term (current) drug therapy; Z98.51 Tubal ligation status; Z88.2 Allergy status to sulfonamides; Z88.8 Allergy status to other drugs, medicaments and biological substances